=== PATIENT | male | born 1990 | race Caucasian/White ===

== ENCOUNTER 2018-06-16 08:10 | Emergency (ER) | payer OTHER ==
[2018-06-16] MEDS ORDERED: Ibuprofen 800 MG TAB ONE (08:23)
--- NOTE | 2018-06-16 21:53 | RAD ---
LEFT ANKLE THREE VIEWS: 06/16/18 There is marked swelling, especially laterally. No fracture, dislocation, or acute joint space abnorm ality was seen. The metatarsals are not included on this study to comment upon. IMPRESSION: Severe lateral swelling. POS: HOME
== END 2018-06-16 09:12 | disposition home or self-care (01) ==
LOC: BURERS 08:10
DX: S93.412A Sprain of calcaneofibular ligament of left ankle, initial encounter (principal); X50.1XXA Overexertion from prolonged static or awkward postures, initial encounter; Y99.0 Civilian activity done for income or pay